=== PATIENT | male | born 1990 | race Caucasian/White ===

== ENCOUNTER 2019-07-28 12:55 | Emergency (ER) | payer OTHER, SELFPAY ==
[2019-07-28 12:56] VITALS: BP 130/91; PULSE 70; RESP 16; TEMP 36.8; O2SAT 99; BMI 29.3
--- NOTE | 2019-07-28 13:35 | RAD_ITS ---
STUDY: X-RAY - RIGHT SHOULDER REASON FOR EXAM: Male, 29 years old. Pain. Decreased range of motion. TECHNIQUE: 2 view(s) of the shoulder. COMPARISON: None. FINDINGS: Normal glenohumeral articulation. Normal acromioclavicular joint. Normal acromion. Normal humeral head and visualized proximal humerus. The soft tissue structures are unremarkable. There is no demonstrated fracture. Normal visualized pulmonary apex. RAD/Shoulder min 2 Views IMPRESSION: Normal x-ray examination of the shoulder. Electronically Signed: Aden Delgadillo MD at 14:59 EDT , Service support ,
--- NOTE | 2019-07-28 13:41 | ED.DCSUM_ITS ---
History of Present Illness <Leo Rowell - Last Filed: 07/28/19 13:41> Informant: Patient, Family Onset: Yesterday Context: Sudden Onset Timing: Continuous Quality: sharp Location: right shoulder Current Severity: Moderate Maximum Severity: Severe Worsened by: movement Relieved by: rest Associated Symptoms: denies Narrative: 29-year-old male [id number] presents with right shoulder injury. Fell onto his right side yesterday hitting his right shoulder on the ground. No prodromal symptoms. No head trauma. No loss of consciousness. He denies numbness tingling or weakness. No history of injury or surgery to this extremity previously. Prior similar symptoms: No Recent Illness/Hospitalization: No <Anmol Kelley - Last Filed: 07/28/19 14:07> Chief Complaint: Upper Extremity Injury Past Medical History Smoking Status: Never smoker <Leo Rowell Last Filed: 07/28/19 13:41> Prior records reviewed: Yes Past Medical History: None Surgical History: no surgical history Lives: With Family <Anmol Kelley - Last Filed: 07/28/19 14:07> - Allergies and Home Meds Allergies/Adverse Reactions: Allergies Fish Containing Products Adverse Reaction (Verified 07/28/19 12:58) Other peanut Adverse Reaction (Verified 07/28/19 12:58) Other Primary Care Physician: Care Physician,No Primary [Primary Care Provider] - Review of Systems All systems negative except as indicated General: Denies: Chills, Fever Musculoskeletal: Reports: Swelling, Extremity Pain <Anmol Kelley - Last Filed: 07/28/19 14:07> Physical Exam Vital Signs/Narrative: Vital Signs Temp Pulse Resp BP Pulse Ox 07/28/19 12:56 98.2 F 70 16 130/91 H 99 <Leo Rowell - Last Filed: 07/28/19 13:41> Vital Signs/Narrative: Vital Signs Temp Pulse Resp BP Pulse Ox 07/28/19 12:56 98.2 F 70 16 130/91 H 99 Inital Vital Signs reviewed: Yes General: Well nourished, Well developed, No Acute Distress Head: Normocephalic, Atraumatic Eyes: Perrl, EOMI ENT: Moist mucous membranes, No rhinorrhea Neck: Supple, Nontender, No lymphadenopathy, No JVD Cardiovascular: Regular rate, Regular rhythm, No murmurs Respiratory: No distress, CTA bilaterally, Chest nontender Abdomen: Soft, Nontender, Nondistended, Normal bowel sounds, No masses Back: Nontender, Normal Inspection Extremities: - - Mild swelling of the right shoulder with mostly pain on palpation of the AC joint. There is no gross deformity. His skin is intact. He has painful abduction and abduction. No gross weakness. He has normal distal pulses and sensation. Neck is nontender on palpation. Skin: Normal color, No rash, No Trauma Neurological: Alert, Oriented x3, Normal Gait <Anmol Kelley - Last Filed: 07/28/19 14:07> Diagnostic/Tx/Re-eval - Medical Decision Making Patient with our physician medicine assistant. Patient fell yesterday landing on Vicryl in his right shoulder causing pain in the top of his right shoulder. No prior history. He is right-hand dominant. No other injuries. Vital signs stable afebrile. Got pain on palpation of the top of his right shoulder distal third of the clavicle. He has limited flexion extension AB and adduction of the right shoulder. The shoulder joint itself is not red, swollen or deformed. Distal humerus, right elbow, right forearm, wrist and hand are nontender neurovascular intact. 5 out of 5 instructional support technician strength. Normal radial pulse. Otherwise exam is unremarkable. Obtain x-ray of the right shoulder. <Leo Rowell - Last Filed: 07/28/19 13:41> - Medical Decision Making X-ray of the shoulder shows no acute abnormality. Discussed with patient likely a minor AC separation. Grade 1. He refuses a sling. We discussed rest ice elevation and the use of Motrin and Tylenol for pain at home. He does not require prescription. He will be discharged and follow-up with his primary care. <Anmol Kelley - Last Filed: 07/28/19 14:07> ED Disposition <Leo Rowell - Last Filed: 07/28/19 13:41> <Anmol Kelley - Last Filed: 07/28/19 14:07> - Plan for ED Patient: Disposition: Home or Assisted Living Diagnosis: Acromioclavicular sprain Instructions: Ac Joint Sprain Referrals: Alfonso Sood MD [NON-STAFF] -
== END 2019-07-28 14:24 | disposition home or self-care (01) ==
PROVIDERS: Emergency Provider Physician Assistant Medical
DX: S43.51XA Sprain of right acromioclavicular joint, initial encounter (principal); W01.10XA Fall on same level from slipping, tripping and stumbling with subsequent striking against unspecified object, initial encounter; Y93.9 Activity, unspecified; Y92.9 Unspecified place or not applicable; Y99.9 Unspecified external cause status; Z79.899 Other long term (current) drug therapy
CPT/HCPCS: 73030; 99283

== ENCOUNTER → 2022-10-21 | Outpatient (CLI) | payer OTHER, SELFPAY ==
[2022-10-21 11:44] LABS: NATERA MAILED SPECIMEN
--- NOTE | 2022-10-21 11:56 | RAD_ITS ---
STUDY: X-RAY - FACIAL BONES REASON FOR STUDY: Male, 32 years old. Nasal fracture, fall facial injury TECHNIQUE: 3 view(s) of the facial bones. COMPARISON: None. FINDINGS: Normal bilateral frontozygomatic and zygomatic-temporal arches. Normal bilateral medial and inferior orbital sullivan. Normal bilateral orbits. There are non-displaced fractures of the nasal bones. Normal anterior nasal spine. The remaining visualized osseous structures are normal. Normal visualized paranasal sinuses. RAD/Facial Bones min 3 Views IMPRESSION: Nondisplaced nasal fracture. Electronically Signed: Jose Pickering MD at 13:39 EST ,
[2022-10-21 12:10] LABS: Absolute Lymphocyte Count 1.92 X10^3/uL (0.83-4.51); Absolute Neutrophil Count 3.1 X10^3/uL (2.0-7.7); Basophil# 0.02 X10^3/uL; Basophil% 0.4 % (0-1); Eosinophil# 0.06 X10^3/uL; Eosinophils% 1.1 % (0-5); Hematocrit 44.2 % (40-54); Hemoglobin 14.8 g/dL (13.0-16.5); Lymphocyte # 1.92 X10^3/ul (0.83-4.51); Mean Corp Hgb Conc 33.5 g/dL (32-36); Mean Corpuscular Hgb 29.7 pg (27.0-32.0); Mean Corpuscular Volume 88.8 fL (80-94); Mean Platelet Vol. 9.9 fl (6.2-12.0); Monocyte% 8.8 % (0-10); NRBC Flagged by Analyzer 0 % (0-5); Neutrophil # 3.14 X10^3/uL (2.7-7.7); Neutrophil % 55.5 % (47-70); Platelet Count 362 K/mm3 (150-450); RBC Distribution Width CV 11.7 % (11.6-14.6); RBC Distribution Width SD 37.3 fl (35.1-43.9); Red Blood Count 4.98 M/mm3 (4.6-6.2); White Blood Count 5.7 K/mm3 (4.4-11.0)
[2022-10-21 12:37] LABS: Vitamin B12 1352 pg/mL (211-911); Vitamin D,25 Hydroxy 24.6 ng/mL
[2022-10-21 12:42] LABS: ALB/GLOB Ratio 1.3 RATIO (0.9-2.4); AST(SGOT) 26 U/L (15-37); Alanine Aminotransfer ALT/SGPT 46 U/L (16-61); Albumin, Serum 4.5 g/dL (3.2-5.0); Alkaline Phosphatase 67 U/L (45-117); Anion Gap 4 (5-15); BUN 22 mg/dL (7-18); Calcium,Total 9.6 mg/dL (8.5-10.1); Chloride 104 mmol/L (98-107); Cholesterol 173 mg/dL (200); EST Glomerular Filtration Rate 92 mL/min (>60); Est Glom Filt Rate - Afr Amer 111 mL/min (>60); Globulin 3.4 g/dL (2.2-4.2); Glucose 102 mg/dL (74-106); High Density Lipoprotein 71 mg/dL; Potassium 3.9 mmol/L (3.5-5.1); Protein, Total 7.9 g/dL (6.4-8.2); Sodium Level 139 mmol/L (136-145); Thyroid Stim Hormone (TSH) 3.64 uIU/mL (0.358-3.74); Triglycerides 35 mg/dL; Very Low Density Lipoprotein 7 mg/dL (5-40)
== END | disposition home or self-care (01) ==
PROVIDERS: Visit Provider Nurse Practitioner Family
DX: S02.2XXA Fracture of nasal bones, initial encounter for closed fracture (principal); K51.90 Ulcerative colitis, unspecified, without complications; S09.93XA Unspecified injury of face, initial encounter; X58.XXXA Exposure to other specified factors, initial encounter; I10 Essential (primary) hypertension; E56.9 Vitamin deficiency, unspecified; Z80.0 Family history of malignant neoplasm of digestive organs
CPT/HCPCS: 36415; 70150; 80053; 80061; 82306; 82607; 84443; 85025

== ENCOUNTER → 2022-11-08 | Outpatient (CLI) | payer OTHER, SELFPAY | END | disposition home or self-care (01) | LOC: LABSPEC 15:11 | PROVIDERS: Visit Provider Otolaryngology Otolaryngology/Facial Plastic Surgery | DX: J34.0 Abscess, furuncle and carbuncle of nose (principal) | CPT/HCPCS: 87070; 87205 ==

== ENCOUNTER 2022-11-11 09:59 | Emergency (ER) | payer OTHER, SELFPAY ==
[2022-11-11 10:00] VITALS: BP 120/84; PULSE 82; RESP 18; TEMP 36.6; O2SAT 98; BMI 26.2
--- NOTE | 2022-11-11 11:04 | EX.ED.DYSGE1 ---
HPI History of Present Illness Chief Complaint: Abscess Detail of Chief Complaint: Abscess near the bridge of the nose on the left side. Informant: patient Onset/Context/Timing Onset: Days Context: Sudden Onset Timing: Continuous Quality: Abscess Location: Left side of nose Current Severity: Moderate Maximum Severity: Moderate Worsened by: Nothing specific Relieved by: Nothing Associated Symptoms Associated Symptoms: None Narrative Narrative: Patient is a healthy 32-year-old male on no medications who has a reported history of ulcerative colitis. He denies fever, chills night sweats. He denies ocular or visual symptoms. He does have a remote history of fractured nose 3 months ago. He was seen by Dr. Ligia klein and had a needle aspirate of the area. Fluid was sent for analysis and there was no growth. Patient states the abscess has reaccumulated and is now larger. He denies history of rheumatic fever, heart murmur, SBE and is not on any immunosuppressive meds. Prior similar symptoms: Yes Recent Illness/Hospitalization: Yes PFSH PFS Medical History Facial injury Family history of colon cancer History of back problems HTN (hypertension) Hx of seasonal allergies Nasal bone fracture Ulcerative colitis Vitamin deficiency Home Medications multivitamin 1 tab PO DAILY 10/21/22 [History Last Taken Unknown] sulfamethoxazole 800 mg-trimethoprim 160 mg tablet 1 tab PO BID 11/11/22 [History Last Taken Unknown] Allergy/AdvReac Type Severity Reaction Status Date / Time No Known Allergies Allergy Unverified 10/21/22 08:06 Family History Father Colon cancer Grandfather Colon cancer Grandmother Pancreatic cancer Surgical History No history of previous surgery Social History household members: family housing: house current occupational status: employed current occupation: [employer] sexually active: Yes Smoking Status: Never smoker alcohol intake: current alcohol intake frequency: holidays/special occasions only substance use type: does not use what type of physical activity do you participate in: walking frequency: 5-6 times per week seatbelt use: always do you feel safe at home: Yes ROS ROS ED Constitutional Constitutional ED: Denies chills, fever(s), subjective, sweats or weight loss Eyes Eyes: Denies blurry vision, change in vision or diplopia ENT ENT ED: Denies ear pain, rhinorrhea or sore throat Cardiovascular Cardiovascular: Denies chest pain or palpitations Respiratory/Chest Respiratory/Chest: Denies cough or dyspnea Gastrointestinal Gastrointestinal: Denies nausea or vomiting Integumentary Reports abscess; Denies Abrasions or rash Neurologic Neurologic: Denies headache(s), paresthesias or weakness Hematologic/Lymphatic Hematologic/Lymphatic: Denies easy bleeding or easy bruising EXAM Physical Exam Const Vital Signs: 11/11/22 10:00 11/11/22 12:55 Temperature 97.8 F Temperature Source Temporal Pulse Rate 82 Respiratory Rate 18 14 Blood Pressure 120/84 H Blood Pressure Mean 96 Pulse Ox 98 Oxygen Delivery Method Room Air Positive well nourished and well developed General Appearance ED: well developed and NAD; Negative for cyanotic, diaphoretic or pallor HEENT Reports moist mucous membranes HEENT Narrative: Ears normal. Nares patent. Patient has an abscess left side of the nose. The area is fluctuant. There is no induration or warmth. There is slight discoloration. Eyes PERRL and EOMs intact bilaterally Eyes Narrative: There is no involvement of the medial canthal region. This is not in the area that would raise suspicion for a dacryocystitis. General Eye ED: Negative for pale conjunctiva or scleral icterus Neck no lymphadenopathy, supple and no JVD Resp normal respiratory effort and clear to auscultation bilaterally Cardio regular rate, regular rhythm, S1 normal heart sound, S2 normal heart sound and no murmurs Neuro oriented x3, CN's II-XII intact bilaterally and no sensory deficits noted Sensorium / Orientation: alert Psych mental status grossly normal Skin No no rashes or lesions noted, no wounds and skin turgor normal General Skin Exam: elasticity normal; Negative for jaundice or pallor MDM MDM MDM Narrative Medical decision making narrative: Patient has a subcutaneous abscess. Since he is on no immunosuppressive's and exam is otherwise unremarkable laboratory studies were not obtained. Patient was informed the abscess needs to be incised and drained. He was informed what this would entail. We will obtain consent per hospital protocol. Procedures Other Procedures Procedure(s): Patient was informed of risk benefits of I&D of the subcutaneous abscess. He verbally consented. Patient was prepped draped sterile manner. The area was anesthetized by local metrician with 1% lidocaine. Patient had spontaneous rupture. There was a pinhole. There was brown bloody drainage noted initially. An incision was made with a 15 blade. Incision is approximately 5 mm in size. In addition to the brown bloody infected hematoma thick white purulent material was noted as well. The cavity was irrigated. 1/4 inch plain gauze was placed as a wick. Patient was instructed to continue taking his antibiotics. Tolerated procedure well. Discharge Plan Triage Chief Complaint: Abscess ED Provider: Paolo John Dx/Rx/DC Orders Clinical Impression: Abscess of external nose Instructions: ED Abscess Incision And ... Prescriptions: No Action multivitamin Tablet 1 tab PO DAILY sulfamethoxazole-trimethoprim 800-160 mg tablet 1 tab PO BID Label Comments: take 1 tablet by mouth twice a day Primary Care Provider: Neto Ayala NP Referrals: Keith Pereira MD [Med Staff - Courtesy Staff] - Keep Deneen appointment Neto Ayala NP, CHEMICAL LABORATORY ASSISTANT-C [Primary Care Provider] - Disposition Disposition: Home, Self Care
[2022-11-11 12:55] VITALS: RESP 14
[2022-11-11] MEDS: Lidocaine 1% (20 ml mdv) 20 ML Vial INFILT (13:45)
== END 2022-11-11 13:54 | disposition home or self-care (01) ==
PROVIDERS: Emergency Provider Emergency Medicine; PCP Nurse Practitioner Family; Visit Provider Emergency Medicine
DX: J34.0 Abscess, furuncle and carbuncle of nose (principal)
CPT/HCPCS: 10060; 99282

== ENCOUNTER → 2023-03-24 | Outpatient (CLI) | payer OTHER, SELFPAY ==
[2023-03-24 10:26] LABS: Erythrocyte Sedimentation Rate 26 mm/hr (0-20)
[2023-03-24 10:29] LABS: Absolute Lymphocyte Count 1.66 X10^3/uL (0.83-4.51); Absolute Neutrophil Count 6.8 X10^3/uL (2.0-7.7); Basophil# 0.04 X10^3/uL; Basophil% 0.4 % (0-1); Eosinophil# 0.15 X10^3/uL; Eosinophils% 1.6 % (0-5); Hematocrit 45.5 % (40-54); Lymphocyte # 1.66 X10^3/ul (0.83-4.51); Lymphocyte % 17.5 % (19-41); Mean Corpuscular Hgb 29.9 pg (27.0-32.0); Mean Corpuscular Volume 90.8 fL (80-94); Monocyte% 8.5 % (0-10); NRBC Flagged by Analyzer 0 % (0-5); Neutrophil # 6.75 X10^3/uL (2.7-7.7); Neutrophil % 71.4 % (47-70); Platelet Count 383 K/mm3 (150-450); RBC Distribution Width CV 11.4 % (11.6-14.6); RBC Distribution Width SD 37.8 fl (35.1-43.9); Red Blood Count 5.01 M/mm3 (4.6-6.2); White Blood Count 9.5 K/mm3 (4.4-11.0)
[2023-03-24 10:54] LABS: AST(SGOT) 21 U/L (15-37); Alanine Aminotransfer ALT/SGPT 39 U/L (16-61); Albumin, Serum 4.1 g/dL (3.2-5.0); Alkaline Phosphatase 80 U/L (45-117); Anion Gap 5 (5-15); BUN 17 mg/dL (7-18); BUN/Creat Ratio 20.4 RATIO (10-20); CRP 7.16 mg/L (0.0-3.0); Calcium,Total 9.6 mg/dL (8.5-10.1); Chloride 104 mmol/L (98-107); Creatinine, Serum 0.83 mg/dL (0.70-1.30); EST Glomerular Filtration Rate 113 mL/min (>60); Est Glom Filt Rate - Afr Amer 137 mL/min (>60); Glucose 105 mg/dL (74-106); LDH 147 U/L (87-241); Potassium 3.8 mmol/L (3.5-5.1); Protein, Total 8.1 g/dL (6.4-8.2); Sodium Level 137 mmol/L (136-145)
[2023-03-27 14:08] LABS: Endomysial Antibody IgA Negative (Negative); Immunoglobulin A 261 mg/dL (90-386); t-Transglutaminase IgA <2 U/mL (0-3)
[2023-03-30 11:09] LABS: Albumin 3.8 g/dL (2.9-4.4); Alpha-1-Globulins 0.3 g/dL (0.0-0.4); Alpha-2-Globulins 0.9 g/dL (0.4-1.0); Cytoplasmic Ab (C-ANCA) <1:20 titer (Neg:<1:20); Gamma Globulin 1.2 g/dL (0.4-1.8); Immunoglobulin A 262 mg/dL (90-386); Immunoglobulin E 64 IU/mL (6-495); Immunoglobulin G 1148 mg/dL (603-1613); Immunoglobulin M 125 mg/dL (20-172); PROEL- TOTAL PROTEIN 7.3 g/dL (6.0-8.5); Perinuclear Ab (P-ANCA) <1:20 titer (Neg:<1:20)
[2023-03-31 00:07] LABS: Anti-Centromere B Ab <0.2 AI (0.0-0.9); Anti-Chromatin <0.2 AI (0.0-0.9); Anti-Jo <0.2 AI (0.0-0.9); Anti-Scleroderma-70 AB <0.2 AI (0.0-0.9); Anti-dsDNA Ab 1 IU/mL (0-9); Beef <0.10 kU/L (Class 0); Chocolate <0.10 kU/L (Class 0); Corn 0.14 kU/L (Class 0/I); Egg, Whole <0.10 kU/L (Class 0); Milk (Cow) <0.10 kU/L (Class 0); Peanut 0.13 kU/L (Class 0/I); Pork <0.10 kU/L (Class 0); RNP Ab <0.2 AI (0.0-0.9); SJOGREN'S Anti-SS-A test < 0.2 AI (0.0-0.9); SJOGREN'S Anti-SS-B test 0.6 AI (0.0-0.9); Smith Ab <0.2 AI (0.0-0.9); Soybean <0.10 kU/L (Class 0); Wheat 0.12 kU/L (Class 0/I)
== END | disposition home or self-care (01) ==
PROVIDERS: PCP Nurse Practitioner Family; Referring Provider Internal Medicine Gastroenterology; Visit Provider Internal Medicine Gastroenterology
DX: K51.90 Ulcerative colitis, unspecified, without complications (principal)
CPT/HCPCS: 36415; 80053; 82784; 82785; 83516; 83615; 84165; 85025; 85652; 86003; 86005; 86140; 86225; 86235; 86255; 86256; 86334

== ENCOUNTER → 2023-03-25 | Outpatient (CLI) | payer OTHER, SELFPAY ==
[2023-03-29 15:08] LABS: Pancreatic Elastase, Fecal 210 (>200)
[2023-04-03 20:08] LABS: Calprotectin, Stool 21 ug/g (0-120)
== END | disposition home or self-care (01) ==
LOC: LABSPEC 10:22
PROVIDERS: PCP Nurse Practitioner Family; Referring Provider Internal Medicine Gastroenterology; Visit Provider Internal Medicine Gastroenterology
DX: K51.90 Ulcerative colitis, unspecified, without complications (principal)
CPT/HCPCS: 82653; 83630; 83993

== ENCOUNTER 2023-06-23 05:26 | Day surgery (SDC) | payer OTHER, SELFPAY ==
[2023-06-23] VITALS (7 sets, daily range): BP systolic 93–124; BP diastolic 57–80; PULSE 57–83; RESP 16–18; TEMP 36.6–36.8; O2SAT 96–100; BMI 25.9
[2023-06-23] MEDS: Lactated Ringers 1,000 ML 15 ML IV (06:08)
--- NOTE | 2023-06-23 06:30 | IMM_PTH ---
PATIENT: ROSANA COTO LOC: EN U#:[id number] AGE/SX: 33/M ROOM: RE06/23/[address]: Dr. Alejandro Cornelius DO : 1990 BED: DIS: 06/23/2023 SPEC #: [id number] RECD: 06/23/23 13:43 STATUS: ROMAINE RECarolyne #: [id number] KEVEN: 06/23/23 06:[address]: Alejandro Cornelius DEPT: IMMUNOHISTOCHEMISTRY RECD BY: Nadiya Pineda ENTERED: 06/23/23 13:43 SP TYPE: IMMUNO OTHR DR: Neto Ayala, TERRA COTTA MOLD MAKER-C Tissues: A - Stomach, NOS Procedures: H Pylori (initial) PHYSICIAN & INSTITUTION [place] [id number] SPECIMEN INFORMATION: Tissue Source: A - Gastric antrum Clinical Info: Ulcerative colitis Specimen Number: [id number] CPT code: 95455 METHODOLOGY: Deparaffinized sections of prefer/formalin-fixed tissue or PAP/DQ stained slides are incubated with monoclonal/polyclonal antibodies/oligonucleotide probes. Localization is made via biotin free immunoperoxidase method. Appropriate controls are performed and reacted as expected. Results on target cell population are indicated in the following table: RESULTS: ANTIBODY / CLONE RESULT Block A H Pylori (polyclonal) negative These tests were developed and their performance characteristics determined by [facility]. They may not have been cleared or approved by the U.S. Food and Drug Administration. The FDA has determined that such clearance or approval is not necessary. The above immunohistochemical/dualISH markers are ordered and reviewed by the Pathologist. INTERPRETATION: A. Gastric antrum, biopsy: Negative for Helicobacter pylori organisms. AM:sierra 06/26/2023
--- NOTE | 2023-06-23 06:30 | EGD_PTH ---
PATIENT: ROSANA CTOO LOC: EN U#:[id number] AGE/SX: 33/M ROOM: RE06/23/[address]: Dr. Alejandro Cornelius DO : 1990 BED: DIS: 06/23/2023 SPEC #: [id number] RECD: 06/23/23 09:24 STATUS: ROMAINE SARANYA #: [id number] KEVEN: 06/23/23 06:[address]: Alejandro Cornelius DEPT: SURGICAL PATHOLOGY RECD BY: Zulema Carreon ENTERED: 06/23/23 13:15 SP TYPE: EGD BIOPSY OT DR: Neto Ayala, CLOTHING DESIGNER-C Tissues: A - Gastric mucous membrane B - Esophagus, NOS C - Ileum, NOS D - Cecum, NOS E - Ascending colon F - Transverse colon G - Descending colon H - Sigmoid colon biopsy I - Rectum, NOS Procedures: Special Stain Group II Surgery Specimen Level IV Alcian Blue/PAS (control) HEADER OPERATION: Colonoscopy with biopsies, EGD with biopsies (MAC) PRE-OP DIAGNOSIS: Ulcerative colitis TISSUE SUBMITTED: A - Gastric antrum, H. pylori, path, B - Distal esophagus, C - Terminal ileum, D - Cecum, E - Ascending colon, F - Transverse colon, G - Descending colon, H - Sigmoid colon, I - Rectum MICROSCOPIC DIAGNOSIS A. Gastric antrum, biopsy: Chronic gastritis. See comment. B. Distal esophagus, biopsy: Gastroesophageal junctional mucosa with mild chronic inflammation. No evidence of goblet cell metaplasia. See comment. C. Terminal ileum, biopsy: No pathologic change. D. Cecum, biopsy: No pathologic change. E. Ascending colon, biopsy: Minimal architectural change. No evidence of colitis. F. Transverse colon, biopsy: No pathologic change. G. Descending colon, biopsy: No pathologic change. H. Sigmoid colon, biopsy: Mild architectural change. No evidence of colitis. I. Rectum, biopsy: No pathologic change. AM:sierra 06/26/2023 COMMENT A. The results of immunohistochemistry for Helicobacter pylori will be reported separately ([id number]). B. Alcian blue/PAS stain with matched control supports the above diagnosis. MICROSCOPIC DESCRIPTION Slides are reviewed. GROSS DESCRIPTION A - Received in fixative is one container labeled with the patient's name and designated gastric antrum. The specimen consists of one irregular fragment of light mcfarlane soft tissue that measures 0.3 x 0.3 x 0.1 cm. The specimen is totally submitted in one cassette. B - Received in fixative is one container labeled with the patient's name and designated distal esophagus. The specimen consists of two irregular fragments of light mcfarlane soft tissue that in aggregate measure 0.6 x 0.5 x 0.1 cm. The specimen is totally submitted in one cassette. C - Received in fixative is one container labeled with the patient's name and designated terminal ileum. The specimen consists of two irregular fragments of light mcfarlane soft tissue that in aggregate measure 0.6 x 0.3 x 0.1 cm. The specimen is totally submitted in one cassette. D - Received in fixative is one container labeled with the patient's name and designated cecum. The specimen consists of two irregular fragments of light mcfarlane soft tissue that in aggregate measure 0.6 x 0.3 x 0.1 cm. The specimen is totally submitted in one cassette. E - Received in fixative is one container labeled with the patient's name and designated ascending colon. The specimen consists of multiple irregular fragments of light mcfarlane soft tissue that in aggregate measure 2.0 x 0.3 x 0.1 cm. The specimen is totally submitted in one cassette. F - Received in fixative is one container labeled with the patient's name and designated transverse colon. The specimen consists of multiple irregular fragments of light mcfarlane soft tissue that in aggregate measure 2.0 x 0.6 x 0.1 cm. The specimen is totally submitted in one cassette. G - Received in fixative is one container labeled with the patient's name and designated descending colon. The specimen consists of multiple irregular fragments of light mcfarlane soft tissue that in aggregate measure 1.0 x 0.5 x 0.1 cm. The specimen is totally submitted in one cassette. H - Received in fixative is one container labeled with the patient's name and designated sigmoid colon. The specimen consists of multiple irregular fragments of light mcfarlane soft tissue that in aggregate measure 2.0 x 1.0 x 0.1 cm. The specimen is totally submitted in one cassette. I - Received in fixative is one container labeled with the patient's name and designated rectum. The specimen consists of multiple irregular fragments of light mcfaralne soft tissue that in aggregate measure 1.0 x 0.5 x 0.1 cm. The specimen is totally submitted in one cassette. / AM:sierra 06/23/2023 TC:3 CPT: 30969 x9
--- NOTE | 2023-06-23 06:38 | HP.PCM_ITS ---
History and Physical Date of Admission: 06/23/23 ROSANA COTO, is a 32 M who presents to the office today for FH UC, colon cancer (father age 30, age 40), Guzman disease (sister) PCP OV 10.21.22 to establish care. UC diagnosis in high school. Last colonoscopy 13 years prior with no GI f/u in this time. Symptoms are managed following weight loss and diet change with no flares since high school. 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 Typically, symptoms are well managed with diet. Recently ate something that did not agree and had symptoms of loose and frequent stools with abdominal pain. ROS Const Constitutional: No body ache, chills, excessive sweating, fatigue, fever(s), frequent falls, headache(s), snoring, weakness, sleep problems or change in appetite Eyes Eyes: No blurry vision, change in vision, eye pain or Light sensitivity ENT ENT: No abnormal hearing, ear or mastoid pain, tinnitus, nasal congestion, headache(s), neck pain or sore throat Resp Respiratory: No cough, shortness of breath, snoring or wheezing Cardio Cardiology: No chest pain at rest, chest pain with exertion, excessive sweating, shortness of breath, dyspnea on exertion, lightheadedness, orthopnea or palpitations Gastro GI: No abdominal pain, change in bowel habits, constipation, cramping, diarrhea, nausea/dyspepsia or vomiting Genitourinary Male: No burning urination, painful urination, urinary incontinence or urinary frequency Musc Musculoskeletal: No abnormal gait, joint pain, back pain, limited range of motion, muscle weakness, neck pain or numbness Skin Skin: No dry skin, redness, lesions, itchy eyes, rash or wounds Neuro Neurology: No abnormal gait, abnormal hearing, weakness, frequent falls, headache(s), memory loss or numbness Psych Psychiatric: No anxiety, No change in appetite, No depression, No memory loss and No Thoughts of harming yourself/Others Endo Endocrine: No cold intolerance, excessive sweating, fatigue, flushing, heat intolerance, increased thirst/drinking or increased hunger Aller/Imm Allergy/Immunologic: No itchy eyes, seasonal allergy symptoms, hives or wheezing Exam Const General: cooperative, comfortable and no acute distress Nutritional Appearance: average body habitus and well nourished Orientation: alert and oriented x3 Limitations: mental status not altered HENOK Head: normal to inspection Ears: hearing grossly normal bilaterally Nose: external nose normal (Diffuse swelling noted in the left upper nasal bridge) Eyes General: appearance normal, both eyes and all related structures Other: Tenderness on palpation above the left eyebrow region Resp Effort & Inspection: normal respiratory effort, able to speak in complete sentences, symmetric chest movement, normal respiratory pattern, no audible wheezes and no cough Auscultation: Bilateral: Clear to Auscultation Cardio Palpation: normal PMI Rate: regular rate Heart Sounds: S1 normal, S2 normal, normal S1 and S2, no click, no gallops, no murmurs and no rubs GI Inspection: normal to inspection Auscultation: normal bowel sounds, no hyperactive bowel sounds and no hypoactive bowel sounds Palpation: soft and no hepatosplenomegaly Musc Musculoskeletal: No joint tenderness or decreased range of motion Skin General: no rashes or lesions noted, elasticity normal and turgor normal Lesions: no lesions Rashes: no rashes Neuro General: patient alert, patient awake, patient oriented x3 and CN's II-XI intact bilaterally Speech: speech normal Gait: normal gait Motor: muscle tone normal throughout Extrem General: normal to inspection, normal gait, no edema and no pedal edema Psych Appearance: grossly normal Mental Status: mental status grossly normal Affect: normal affect Attitude: cooperative Thought Process: normal Quality Reporting Tobacco Screening ([facility] 138) Smoking Status: Never smoker Assessment and Plan Assessment and Plan (1) Ulcerative colitis: Status: Chronic Plan: He has a 20-year history of I believe left-sided ulcerative colitis. He is steroid na?ve. He is not on any medications at this time. He did lose almost 90 pounds and has been managing his UC. Diet. He does have a positive family history of Guzman syndrome and he is positive for the Guzman syndrome gene. His sister is also positive for Guzman syndrome gene. We will perform blood work so we can risk stratify his ulcerative colitis objectively with blood work and then we will perform colonoscopy to risk stratify and help determine the natural history of his disease with biopsies and Optical colonoscopy. He has no extraintestinal manifestations of ulcerative colitis including no rashes, liver abnormalities, pancreatic abnormalities, abnormalities. He is not experiencing any swelling in his joints. He denies any fatigue, lower GI bleeding or diarrhea. He has never had a bowel infection. He has never been on any immunosuppressive's. He was previously on 5-ASA but that was several years ago. Orders: Orders Comprehensive Metabolic Profil Today K5. - Ulcerative colitis, unspecified, without complications CRP Today K5. - Ulcerative colitis, unspecified, without complications LDH Today K5. - Ulcerative colitis, unspecified, without complications CBC W/Diff, Automated Today K5. - Ulcerative colitis, unspecified, without complications Erythrocyte Sed Rate Today K5 - Ulcerative colitis, unspecified, without complications Allergen, Rast Food Profile Today K5. - Ulcerative colitis, unspecified, without complications IRVIN Comprehensive Panel Today K5. - Ulcerative colitis, unspecified, without complications Calprotectin, Stool Today K5. - Ulcerative colitis, unspecified, without complications Stool Lactoferrin/WBC Today K5. - Ulcerative colitis, unspecified, without complications ANCA Today K5. - Ulcerative colitis, unspecified, without complications Celiac Disease Profile Today K5 - Ulcerative colitis, unspecified, without complications Immunoglobulins G/A/M/E Today K5 - Ulcerative colitis, unspecified, without complications GAURAV + Protein Elect, Serum Today K5. - Ulcerative colitis, unspecified, without complications Pancreatic Elastase, Fecal Today K5. - Ulcerative colitis, unspecified, without complications Miscellaneous Lab Procedure Today K5 - Ulcerative colitis, unspecified, without complications I have examined the patient and the H&P has been reviewed. There are no clinical changes since date of exam.
--- NOTE | 2023-06-23 07:25 | OP.CCLET_ITS ---
06/23/2023 Neto Ayaal NP [address] [place] [address] [place] [address] Re : Upper GI endoscopy procedure for Von Garcia Dear Mr. Ayala This procedure was performed on Friday, June 23, 2023. My impressions and recommendations are as follows: Impressions : - LA Grade A reflux esophagitis with no bleeding. Biopsied. - Erythematous mucosa in the antrum. Biopsied. - Normal second portion of the duodenum. - Duodenal lipoma. Recommendations : - Discharge patient to home. - Resume previous diet. - Continue present medications. - Await pathology results. My findings are described in the full procedure note, which is enclosed. If I can be of further assistance, please feel free to contact me at . Sincerely, Alejandro Cornelius DO 06/23/2023 7:24:34 AM This report has been signed electronically.
--- NOTE | 2023-06-23 07:25 | OP.EGD_ITS ---
Patient Name: Von Garcia Procedure Date: 06/23/2023 6:20 AM Date of : 1990 Age: 33 Procedure: Upper GI endoscopy Indications: Epigastric abdominal pain, Heartburn Providers: Alejandro Cornelius DO Medicines: Monitored Anesthesia Care Patient Profile: This is a 33 year old male. Refer to note in patient chart for documentation of history and physical. Patient has symptoms of chronic epigastric abdominal pain and chronic heartburn. Complications: No immediate complications. Procedure: Pre-Anesthesia Assessment: - Prior to the procedure, a History and Physical was performed, and patient medications and allergies were reviewed. The risks and benefits of the procedure and the sedation options and risks were discussed with the patient. All questions were answered and informed consent was obtained. Patient identification and proposed procedure were verified by the physician. Mental Status Examination: normal. Prophylactic Antibiotics: The patient does not require prophylactic antibiotics. Prior Anticoagulants: The patient has taken no anticoagulant or antiplatelet agents. After reviewing the risks and benefits, the patient was deemed in satisfactory condition to undergo the procedure. The anesthesia plan was to use monitored anesthesia care (MAC). Immediately prior to administration of medications, the patient was re-assessed for adequacy to receive sedatives. The heart rate, respiratory rate, oxygen saturations, blood pressure, adequacy of pulmonary ventilation, and response to care were monitored throughout the procedure. The physical status of the patient was re-assessed after the procedure. After obtaining informed consent, the endoscope was passed under direct vision. Throughout the procedure, the patient's blood pressure, pulse, and oxygen saturations were monitored continuously. The colonoscope was introduced through the mouth, and advanced to the second part of duodenum. The upper GI endoscopy was accomplished without difficulty. The patient tolerated the procedure well. Scope In: 6:50:26 AM Scope Out: 6:55:57 AM Total Procedure Duration Time 0 hours 5 minutes 31 seconds Findings: LA Grade A (one or more mucosal breaks less than 5 mm, not extending between tops of 2 mucosal folds) esophagitis with no bleeding was found 37 to 39 cm from the incisors. Biopsies were taken with a cold forceps for histology. Verification of patient identification for the specimen was done. Estimated blood loss was minimal. Patchy mildly erythematous mucosa without bleeding was found in the gastric antrum. Biopsies were taken with a cold forceps for histology. Verification of patient identification for the specimen was done. Estimated blood loss was minimal. The second portion of the duodenum was normal. There was a small lipoma, 3 mm in diameter, in the first portion of the duodenum. Impression: - LA Grade A reflux esophagitis with no bleeding. Biopsied. - Erythematous mucosa in the antrum. Biopsied. - Normal second portion of the duodenum. - Duodenal lipoma. Recommendation: - Discharge patient to home. - Resume previous diet. - Continue present medications. - Await pathology results. Procedure Code(s): --- Professional --- 23968, Esophagogastroduodenoscopy, flexible, transoral; with biopsy, single or multiple CPT copyright 2021 [employer]. All rights reserved. The codes documented in this report are preliminary and upon computer language coder review may be revised to meet current compliance requirements. Alejandro Cornelius DO 06/23/2023 7:24:34 AM This report has been signed electronically. Number of Addenda: 0 Note Initiated On: 06/23/2023 6:20 AM
--- NOTE | 2023-06-23 07:27 | OP.COLON_ITS ---
Patient Name: Von Garcia Procedure Date: 06/23/2023 6:56 AM Date of : 1990 Age: 33 Procedure: Colonoscopy Indications: Follow-up of left-sided chronic ulcerative colitis Providers: Alejandro Cornelius DO Medicines: Monitored Anesthesia Care Patient Profile: This is a 33 year old male. Refer to note in patient chart for documentation of history and physical. Patient has symptoms of chronic epigastric abdominal pain and chronic heartburn. Last Colonoscopy: within the past 3 years. Complications: No immediate complications. Procedure: Pre-Anesthesia Assessment: - Prior to the procedure, a History and Physical was performed, and patient medications and allergies were reviewed. The risks and benefits of the procedure and the sedation options and risks were discussed with the patient. All questions were answered and informed consent was obtained. Patient identification and proposed procedure were verified by the physician. Mental Status Examination: normal. Prophylactic Antibiotics: The patient does not require prophylactic antibiotics. Prior Anticoagulants: The patient has taken no anticoagulant or antiplatelet agents. After reviewing the risks and benefits, the patient was deemed in satisfactory condition to undergo the procedure. The anesthesia plan was to use monitored anesthesia care (MAC). Immediately prior to administration of medications, the patient was re-assessed for adequacy to receive sedatives. The heart rate, respiratory rate, oxygen saturations, blood pressure, adequacy of pulmonary ventilation, and response to care were monitored throughout the procedure. The physical status of the patient was re-assessed after the procedure. After I obtained informed consent, the scope was passed under direct vision. Throughout the procedure, the patient's blood pressure, pulse, and oxygen saturations were monitored continuously. The colonoscope was introduced through the anus and advanced to the terminal ileum. The colonoscopy was performed without difficulty. The patient tolerated the procedure well. The quality of the bowel preparation was adequate. The terminal ileum, ileocecal valve, appendiceal orifice, and rectum were photographed. Scope In: 6:57:40 AM Scope Withdrawal Time 0 hours 16 minutes 13 seconds Scope Out: 7:17:40 AM Total Procedure Duration Time 0 hours 20 minutes 0 seconds Findings: The perianal and digital rectal examinations were normal. Inflammation was not found based on the endoscopic appearance of the mucosa in the colon. This was graded as Cross Score 0 (normal or inactive disease), and when compared to the previous examination, the findings are new. Biopsies were taken with a cold forceps for histology. Verification of patient identification for the specimen was done. Estimated blood loss was minimal. The terminal ileum appeared normal. Biopsies were taken with a cold forceps for histology. Verification of patient identification for the specimen was done. Estimated blood loss was minimal. Impression: - Inactive (Cross Score 0) ulcerative colitis, new since the last examination. Biopsied. - The examined portion of the ileum was normal. Biopsied. Recommendation: - Discharge patient to home. - Resume previous diet. - Continue present medications. - Await pathology results. - Repeat colonoscopy in 2 years to assess disease activity. Procedure Code(s): --- Professional --- 57816, Colonoscopy, flexible; with biopsy, single or multiple CPT copyright 2021 [employer]. All rights reserved. The codes documented in this report are preliminary and upon freight representative review may be revised to meet current compliance requirements. Alejandro Cornelius DO 06/23/2023 7:27:23 AM This report has been signed electronically. Number of Addenda: 0 Note Initiated On: 06/23/2023 6:56 AM
--- NOTE | 2023-06-23 07:27 | OP.CCLET_ITS ---
06/23/2023 Neto Ayala NP [address] [place] [address] [place] [address] Re : Colonoscopy procedure for Von Garcia Dear Mr. Ayala This procedure was performed on Friday, June 23, 2023. My impressions and recommendations are as follows: Impressions : - Inactive (Cross Score 0) ulcerative colitis, new since the last examination. Biopsied. - The examined portion of the ileum was normal. Biopsied. Recommendations : - Discharge patient to home. - Resume previous diet. - Continue present medications. - Await pathology results. - Repeat colonoscopy in 2 years to assess disease activity. My findings are described in the full procedure note, which is enclosed. If I can be of further assistance, please feel free to contact me at . Sincerely, Alejandro Cornelius, 06/23/2023 7:27:23 AM This report has been signed electronically.
== END 2023-06-23 08:05 | disposition home or self-care (01) ==
LOC: EN 05:27 → AC 05:28
PROVIDERS: PCP Nurse Practitioner Family; Referring Provider Internal Medicine Gastroenterology; Visit Provider Internal Medicine Gastroenterology
PROC: 0DJD8ZZ Inspection of Lower Intestinal Tract, Via Natural or Artificial Opening Endoscopic (ICD-10-PCS; CPT 45378; principal; 2023-06-23 06:25)
DX: K29.50 Unspecified chronic gastritis without bleeding (principal); K51.50 Left sided colitis without complications; K21.00 Gastro-esophageal reflux disease with esophagitis, without bleeding; D17.5 Benign lipomatous neoplasm of intra-abdominal organs; Z80.0 Family history of malignant neoplasm of digestive organs; I10 Essential (primary) hypertension
CPT/HCPCS: 45380; 43239; 88305; 88313; 88342; J7120; J2405